=== PATIENT | male | born 1965 | race Caucasian/White ===

== ENCOUNTER 2019-05-20 08:47 | Outpatient (CLI) | payer OTHER, SELFPAY ==
--- NOTE | 2019-05-20 09:00 | IR_ITS ---
WS: [id number] MYELOGRAM CERVICAL SPINE Fluoroscopic guided cervical myelogram CLINICAL INFORMATION: Neck pain COMPARISON: None. TECHNIQUE: The procedure, including risks, benefits, and complications, were discussed with the patie nt who agreed to proceed. A timeout was performed to confirm correct patient, procedure, and site. Using sterile technique, the patient was prepped and draped in the usual sterile fashion. After admin istration of local anesthesia using 1% preservative-free lidocaine and using fluoroscopic guidance, a 22-gauge spinal needle was advanced into the subarachnoid space at the L2-3 level. Subsequently 13 c c of Omnipaque 300 was administered into the thecal sac. The needle was removed and hemostasis was ac hieved. Subsequently the table was tilted down and contrast flowed freely into the cervical spine. Sp ot fluoroscopic images were obtained. FLUOROSCOPIC TIME: 4.6 minutes. Spot fluoroscopic images demonstrate straightening of the normal cervical lordosis. Prior postoperati ve changes anterior cervical fusion C4-C6 with interbody fusion. Hardware appears in good position. D isc space narrowing worse at C3-C4 and C6-7. Anterior hypertrophic changes. No instability on flexio n-extension. Please see CT myelogram report for additional detail. IR/IR myelogram sp cervical [id number] IMPRESSION: 1. Uncomplicated cervical myelogram. 2. Straightening of the normal cervical lordosis. No instability on flexion-ex tension. 3. Prior postoperative changes anterior cervical fusion C4-C6. Hardware appear s in good position. 4. Disc space narrowing worse at C3-C4 and C6-C7.
--- NOTE | 2019-05-20 09:00 | IR_ITS ---
WS: [id number] MYELOGRAM LUMBAR SPINE Fluoroscopic guided lumbar myelogram CLINICAL INFORMATION: Lumbar stenosis COMPARISON: None. TECHNIQUE: The procedure, including risks, benefits, and complications, were discussed with the patie nt who agreed to proceed. A timeout was performed to confirm correct patient, procedure, and site. Using sterile technique, the patient was prepped and draped in the usual sterile fashion. After admin istration of local anesthesia using 1% preservative-free lidocaine and using fluoroscopic guidance, a 22-gauge spinal needle was advanced into the subarachnoid space at the L2-3 level. Subsequently 13 c c of Omnipaque 300 was administered into the thecal sac. The needle was removed and hemostasis was ac hieved. Spot fluoroscopic images were obtained. FLUOROSCOPIC TIME: 4.6 minutes. Spot fluoroscopic images demonstrate 5 nonrib-bearing lumbar vertebral bodies. Hypertrophic changes i n the lower lumbar spine. Right renal calculus measuring 15 mm. Disc space narrowing worse at L3-L4 L 4-L5 and L5-S1. Slight retrolisthesis L3 on L4 and L4 on L5. Moderate facet arthropathy L4-L5 and L5- S1 with bony foraminal narrowing. No significant instability on flexion-extension. Some subdural exte nsion of contrast. Aortic calcification. Please see CT myelogram report for additional detail. IR/IR myelogram sp lumbar [id number] IMPRESSION: 1. Uncomplicated L2-3 lumbar myelogram 2. No instability on flexion-extension. 3. Disc space narrowing worse at L3-L4 and L4-L5 with slight retrolisthesis. 4. Right renal pelvic calculus measuring 15 mm. This can be further evaluated with renal stone protocol CT.
[2019-05-20 09:20] LABS: INR 0.98 (0.8-1.2)
[2019-05-20] MEDS: iohexol 300 mg/mL 50 mL Btl IV (10:44)
--- NOTE | 2019-05-20 11:00 | CT_ITS ---
WS: [id number] CT CERVICAL MYELOGRAM TECHNIQUE: CT of the cervical spine coronal and sagittal reformatted images post intrathecal administ ration of contrast. CLINICAL INFORMATION: Neck pain COMPARISON: MRI February 25, [address] myelogram 015 DLP: 901.[address] scans at [facility] use at least one of these dose optimization techniques: automat ed exposure control; mA and/or kV adjustment per patient size (includes targeted exams where dose is matched to clinical indication); or iterative reconstruction. FINDINGS: Straightening of the normal cervical lordosis. Normal C1-2 articulation. Prior postoperative changes anterior cervical interbody fusion at C4-C6. No evidence of hardware loosening. Disc space narrowing worse at C3-C4 and C6-C7. No high-grade central canal stenosis. C2-C3: No significant disc bulging. Spinal canal and foramen are patent. C3-C4: Mild disc bulging with osteophytic ridging. Mild central canal stenosis. Moderate left and mil d right bony foraminal narrowing. Mild facet arthropathy. Mild central canal stenosis. C4-C5: Prior postoperative changes anterior interbody cervical fusion. Moderate left and mild right b noemy foraminal narrowing. Spinal canal is patent. C5-C6: Postoperative changes anterior interbody cervical fusion. Severe right and moderate left bony foraminal narrowing. Spinal canal is patent. C6-C7: Postoperative changes anterior cervical fusion. Severe right greater than left bony foraminal narrowing. Mild central canal stenosis. C7-T1: Mild left and no significant right foraminal narrowing. Spinal canal is patent. Mastoid air ce lls are well aerated. Disc space narrowing at C6-C7 has progressed since the prior MRI . Otherwise no significant interval changes. CT/CT cervical spine w con [id number] IMPRESSION: 1. Straightening of the normal cervical lordosis. 2. Anterior cervical fusion C4-C6 with interbody fusion. Hardware appears well seated and unchanged. 3. Mild central canal stenosis C3-C4 and C6-C7 is unchanged. 4. Severe multilevel bony foraminal narrowing worse at right C5-C6 and bilater al C6-7 right greater than left. This is unchanged.
--- NOTE | 2019-05-20 11:30 | CT_ITS ---
WS: [id number] CT LUMBAR SPINE TECHNIQUE: Contrast-enhanced CT of the lumbar spine with coronal and sagittal reformatted images. CLINICAL INFORMATION: Low back pain COMPARISON: MRI 11 18,019 and prior myelogram 10 15,015 DLP: 2412.[address] scans at [facility] use at least one of these dose optimization techniques: automat ed exposure control; mA and/or kV adjustment per patient size (includes targeted exams where dose is matched to clinical indication); or iterative reconstruction. FINDINGS: Mild spondylitic changes lumbar spine with disc osteophyte complexes worse at L3-L4 and L4-L5 with hy pertrophic changes. Endplate degenerative changes at these levels. Disc bulging is similar to the sandro or MRI. L1-L2: Mild annular bulging with narrowing of the left subarticular recess. Mild facet arthropathy. F oramen are patent. L2-L3: Mild disc bulging with narrowing of the left subarticular recess. Mild central canal stenosis. Mild facet arthropathy. Foramen are patent. L3-L4: Central disc osteophyte complex with moderate central canal stenosis appears unchanged from th e prior examination. Moderate left and mild right foraminal narrowing. Mild facet arthropathy. L4-L5: Disc osteophyte complex with endplate ridging. Moderate facet arthropathy. Moderate central ca nal stenosis. Narrowing of the left greater than right subarticular recess. Moderate bilateral forami nal narrowing is unchanged. L5-S1: Mild disc bulging with endplate ridging. Moderate right greater than left facet arthropathy. S emerson canal and foramen are patent. Aortic calcification. Visualized pelvic bony structures: Normal. Paravertebral soft tissues: Normal. CT/CT lumbar spine w con [id number] IMPRESSION: 1. Moderate central canal stenosis L3-L4 and L4-L5 due to disc osteophyte comp lexes appears unchanged since the prior MRI. 2. Moderate bilateral L4-5 foraminal narrowing due to osteophytic ridging left greater than right is unchanged. Narrowing of the left L4-5 subarticular reces s. 3. Moderate left L3-4 foraminal narrowing. 4. Small left pericentral protrusion L2-3 with a left subarticular recess. 5. Moderate facet arthropathy worse L4-L5 and right L5-S1.
== END 2019-05-20 08:48 | disposition home or self-care (01) ==
LOC: RAD 08:51
PROVIDERS: Family Provider Family Medicine; PCP Family Medicine; Visit Provider Licensed Practical Nurse
DX: M48.061 Spinal stenosis, lumbar region without neurogenic claudication (principal); M47.817 Spondylosis without myelopathy or radiculopathy, lumbosacral region
CPT/HCPCS: 62302; 62304; 72040; 72120; 72126; 72132; 85610; J2001

== ENCOUNTER → 2019-05-28 07:41 | Outpatient (BNVA) | payer OTHER, SELFPAY | PROVIDERS: Family Provider Family Medicine; PCP Family Medicine; Referring Provider Licensed Practical Nurse; Visit Provider Psychiatry & Neurology Neurology | DX: M51.17 Intervertebral disc disorders with radiculopathy, lumbosacral region (principal); M54.5 Low back pain; M79.605 Pain in left leg; M79.604 Pain in right leg; F17.210 Nicotine dependence, cigarettes, uncomplicated | CPT/HCPCS: 95886; 95909 ==

== ENCOUNTER 2020-03-03 09:47 | Outpatient (CLI) | payer OTHER, SELFPAY ==
--- NOTE | 2020-03-03 09:45 | XRR_ITS ---
PROCEDURE INFORMATION: Exam: XR Abdomen, 1 View Exam date and time: 03/03/2020 10:10 AM Age: 54 years old Clinical indication: Condition or disease; Kidney or ureter condition; Calculus (stone) in kidney; Prior surgery; Surgery type: Hernia; Additional info: Renal stone TECHNIQUE: Imaging protocol: XR of the abdomen. Views: Frontal supine view of the abdomen. 1 View. COMPARISON: UT XR KUB [id number] 11/05/2018 7:20 AM FINDINGS: Gastrointestinal tract: Normal. No bowel dilation. Organs: Calcified caliceal stone in seen in the central collecting system the right kidney 10.6 mm x 18.4 mm. This finding was present on prior examination and appears stable. Bones/joints: Moderate osteoarthritis is seen in the lumbar spine with bone spurs and narrowing of the intervertebral disc space XR/XR KUB [id number] IMPRESSION: 1. Negative for acute GI abnormality. 2. Caliceal stone central collecting system of the right kidney 3. Lumbar spine osteoarthritis
== END 2020-03-03 09:48 | disposition home or self-care (01) ==
LOC: RAD 09:51
PROVIDERS: PCP Family Medicine; Visit Provider Urology
DX: N20.0 Calculus of kidney (principal); M47.816 Spondylosis without myelopathy or radiculopathy, lumbar region
CPT/HCPCS: 74018; 81003

== ENCOUNTER → 2020-10-02 10:22 | Outpatient (BNVA) | payer BC, SELFPAY | PROVIDERS: PCP Family Medicine; Visit Provider Nurse Practitioner Family | DX: R10.11 Right upper quadrant pain (principal); Z68.31 Body mass index [BMI] 31.0-31.9, adult; F17.210 Nicotine dependence, cigarettes, uncomplicated | CPT/HCPCS: 80053; 85025 ==

== ENCOUNTER 2020-12-08 07:21 | Outpatient (CLI) | payer BC, SELFPAY ==
--- NOTE | 2020-12-08 07:28 | NM_ITS ---
WS: [id number] NUCLEAR MEDICINE HIDA SCAN WITH GALLBLADDER EJECTION FRACTION HISTORY: R10.11 - Right upper quadrant pain COMPARISON: None available. TECHNIQUE: The patient was intravenously injected with 4.1 mCi of TC99m Mebrofenin. Immediate imaging over the right upper quadrant was followed by 5 minute image and additional images for a total of 60 minutes. Normal uptake of radiotracer throughout the liver. Activity identified in the gallbladder at 15 minutes and well distended by 60 minutes. Activity in the proximal small bowel was seen by 40 minutes. Good washout of the radiotracer from the liver by 60 minutes. The patient then drank 8 ounces of Ensure Plus. Ejection fraction at 60 minutes was 63%. Normal GB ej ection fraction is 35-75%. Post fatty meal symptoms: None. NM/NM hepatobiliary w phar* [id number] IMPRESSION: 1. Normal HIDA scan. 2. Normal gallbladder ejection fraction.
== END 2020-12-08 07:22 | disposition home or self-care (01) ==
LOC: RAD 07:23
PROVIDERS: PCP Family Medicine; Visit Provider Nurse Practitioner Family
DX: R10.11 Right upper quadrant pain (principal)
CPT/HCPCS: 78227; A9537

== ENCOUNTER 2021-01-14 07:47 | Outpatient (CLI) | payer BC, SELFPAY ==
--- NOTE | 2021-01-14 07:30 | XR_ITS ---
WS: [id number] XR KUB [id number] REASON FOR EXAM: RENAL CALCULUS FINDINGS: 16 x 8 mm calculus overlying the mid lower right kidney. Unchanged compared to 03/03/2020. No additional urinary tract calculi are identified. No other significant abdominal abnormality. XR/XR KUB [id number] IMPRESSION: Stable right renal calculus as above.
== END 2021-01-14 07:48 | disposition home or self-care (01) ==
LOC: RAD 07:50
PROVIDERS: PCP Family Medicine; Visit Provider Urology
DX: N20.0 Calculus of kidney (principal)
CPT/HCPCS: 74018; 81003; 84403

== ENCOUNTER 2021-02-09 05:01 | Emergency (ER) | payer BC, SELFPAY ==
[2021-02-09 05:04] VITALS: BP 156/81; PULSE 66; RESP 20; TEMP 36.6; O2SAT 98; BMI 31.3
--- NOTE | 2021-02-09 05:15 | XRR_ITS ---
PROCEDURE INFORMATION: Exam: XR Abdomen Exam date and time: 02/09/2021 5:15 AM Age: 55 years old Clinical indication: Abdominal pain; Localized; Right; Additional info: L flank pain TECHNIQUE: Imaging protocol: XR of the abdomen. Views: Frontal supine view of the abdomen. 1 View. COMPARISON: CR XR KUB [id number] 01/14/2021 8:03 AM FINDINGS: Gastrointestinal tract: Mild amount of formed stool in the colon. Bones/joints: Unremarkable. XR/XR KUB portable [id number] IMPRESSION: Mild constipation. Radiation Dose CTDIVOL = (mGy): DLP = (mGy-cm)
--- NOTE | 2021-02-09 05:20 | W.ED.ABDPA2 ---
Documented by User: Ray Liazrraga MD 02/09/21 05:23 HPI - Abdominal Pain General: Chief Complaint: Abdominal Pain Stated Complaint: pain in lower back Time Seen by Provider: 02/09/21 05:14 Source: patient Mode of arrival: ambulatory Limitations: no limitations History of Present Illness: HPI narrative: 55-year-old male who has a long history of kidney stones states he was woken up this morning at 2 AM with severe left-sided flank pain. He states that the pain was immediate sharp and rates it a 9 out of 10 with nausea no vomiting. States this feels like his previous kidney stones. Denies any worsening improving factors. Denies any fever or dysuria. Associated Symptoms: Denies chills, diarrhea, fever(s), nausea and vomiting Review of Systems Const: Denies: fever(s), chills, body aches or change in appetite Eyes: Denies: blurry vision or eye discomfort ENMT: Denies: throat pain or dental pain Card: Denies: chest pain Resp: Denies: dyspnea GI: Denies: abdominal pain, nausea, vomiting or diarrhea : Reports: flank pain Musc: Denies: neck pain or back pain Skin/Breast: Denies: rash Neuro: Denies: headache(s) Psych: Denies: depression [place]/Lymph: Denies: easy bruising All/Imm: Denies: urticaria PFSH ED PFSH: Medical History Cervical disc disorder with myelopathy of mid-cervical region Cervical post-laminectomy syndrome Intervertebral disc disorder with radiculopathy of lumbosacral region Lumbar stenosis with neurogenic claudication Other male erectile dysfunction Renal calculus, right Surgical History History of cervical spinal surgery (~2007) Dr. Kasey Quiroz History of hernia surgery Dr. Henry History of knee surgery (Unknown) Dr. Martinez, [place] [facility]. 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[employer] Medical History of recent travel: No Physical Exam Const: COMMON NORMALS: no acute distress, patient oriented x3 and healthy appearing HENMT: COMMON NORMALS: normocephalic and atraumatic HEAD & SCALP: normocephalic and atraumatic Eye: COMMON NORMALS: Equal, round and reactive pupils present and EOMs intact bilaterally PUPIL: Yes Equal, round and reactive pupils present Neck/C-Spine: COMMON NORMALS: full ROM and supple Chest: COMMONS NORMALS: normal inspection of the chest and normal palpation of entire chest wall Resp: COMMON NORMALS: normal respiratory effort, No retractions, No use of accessory muscles and clear to auscultation bilaterally AUSCULTATION: clear to auscultation bilaterally Cardio: COMMON NORMALS: regular rate, regular rhythm and No murmurs present (Cardio) RATE: regular rate RHYTHM: regular rhythm GI: COMMON NORMALS: Normal to inspection, nondistended, normoactive bowel sounds present, Soft to palpation, non-tender and no masses PALPATION: Yes Soft to palpation Extremity: COMMON NORMALS: normal to inspection and full ROM Neuro: COMMON NORMALS: patient oriented x3, moves all extremities and no focal motor deficits Psych: COMMON NORMALS: mental status grossly normal, Normal thought process present and cooperative THOUGHT PROCESS: Normal thought process present Skin: COMMON NORMALS: no rashes or lesions noted and no wounds GENERAL SKIN EXAM: no rashes or lesions noted Course Vital Signs: Vital signs: Vital Signs Temperature 97.9 F 02/09/21 05:04 Pulse Rate 66 02/09/21 05:04 Respiratory Rate 16 02/09/21 05:53 Blood Pressure 156/81 02/09/21 05:04 Pulse Oximetry 96 02/09/21 05:53 MDM - Abdominal Pain Lab Data: Labs: Lab Results 02/09/21 02/09/21 02/09/21 05:20 05:20 05:40 WBC 8.1 10^3/uL 10^3/ uL (4.0-10.0) RBC 4.83 10^6/uL 10^6 /uL (4.1-5.3) Hgb 15.9 g/dL g/dL (11.7-16.6) Hct 48.6 % % (42.0-52.0) MCV 100.6 fl H fl (80-94) MCH 32.9 pg pg (28.0-34.0) MCHC 32.7 g/dL g/dL (30.0-36.0) RDW 12.5 % % (12.1-15.1) Plt Count 178 10^3/cmm 10^3 /cmm (130-400) MPV 9.8 fL fL (7.4-10.4) Neut % (Auto) 67.3 % % Lymph % (Auto) 21.2 % % Coleman % (Auto) 7.0 % % Eos % (Auto) 3.3 % % Baso % (Auto) 0.6 % % Neut # (Auto) 5.46 10^3/uL 10^3 /uL (1.8-7.7) Lymph # (Auto) 1.7 10^3/uL 10^3/ uL (0.8-4.8) Coleman # (Auto) 0.6 10^3/uL 10^3/ uL (0.2-0.9) Eos # (Auto) 0.3 10^3/uL 10^3/ uL (0.0-0.8) Baso # (Auto) 0.1 10^3/uL 10^3/ uL (0.0-0.1) Nucleated RBC % (a uto) 0 % % Nucleated RBCs # 0.0 /100WBC /100W BC Sodium 139 mmol/L mmol/L (136-145) Potassium 4.4 mmol/L mmol/L (3.5-5.1) Chloride 107 mmol/L mmol/L (98-107) Carbon Dioxide 22 mmol/L mmol/L (22-29) Anion Gap 14.4 (5-19) BUN 10 mg/dL mg/dL (6-20) Creatinine 0.8 mg/dL mg/dL (0.7-1.2) GFR Calculation 100.0 mL/min mL/m in (90-130) Glucose 115 mg/dL mg/dL (65-115) Calculated Osmolal ity 288 mOsm/kg mOsm/ kg (285-295) Calcium 8.6 mg/dL mg/dL (8.5-10.5) Total Bilirubin 0.3 mg/dL mg/dL (0.15-1.2) AST 27 U/L U/L (0-40) ALT 18 U/L U/L (0-41) Alkaline Phosphata se 76 IU/L IU/L (40-130) Total Protein 6.2 g/dL L g/dL (6.6-8.7) Albumin 3.9 g/dL g/dL (3.5-5.2) Globulin 2.3 g/dL g/dL (1.3-4.6) Urine Color Yellow (Yellow) Urine Appearance Sl hazy (CLEAR) Urine pH 5 (5-7) Ur Specific Gravit y 1.025 (1.005-1.030) Urine Protein Neg (Negative) Urine Glucose (UA) Norm (Normal) Urine Ketones Negative (Negative) Urine Blood 3+ H (Negative) Urine Nitrate Negative (Negative) Urine Bilirubin Neg (Negative) Urine Urobilinogen Norm mg/dL mg/dL (Negative) Ur Leukocyte Madeline ase Negative (Negative) Urine RBC 15-25 /hpf H /hpf (0-2) Urine WBC 10-15 /hpf H /hpf (0-5) Ur Squamous Epith Cells 0-4 /hpf H /hpf (0-5) Calcium Oxalate Cr ystal 0-4 /hpf H /hpf Amorphous Sediment Not Reportable Urine Bacteria Trace /hpf /hpf (NONE) Hyaline Casts 0-4 /lpf H /lpf Urine Mucus 1+ /hpf /hpf Discharge Plan Discharge Patient Disposition: Home Clinical Impression: Nephrolithiasis, Cystitis Condition: Stable Prescriptions: New hydrocodone-acetaminophen 7.5-325 mg tablet 1 tab PO Q6H PRN (Reason: pain) Qty: 25 RF: 0 Zofran 4 mg tablet 4 mg PO Q6H PRN (Reason: nausea and vomiting) Qty: 20 RF: 0 tamsulosin 0.4 mg capsule 0.4 mg PO Q24H Qty: 20 RF: 0 ciprofloxacin HCl 750 mg tablet 750 mg PO DAILY Qty: 7 RF: 0 No Action pantoprazole [Protonix] 40 mg tablet,delayed release (DR/EC) 40 mg PO BID PRNRF: 0 tadalafil [Cialis] 20 mg tablet 20 mg PO QDAY PRN (Reason: sexual activity) Qty: 20 RF: 12 ondansetron HCl [Zofran] 4 mg tablet 4 mg PO Q6H PRN (Reason: nausea and vomiting) Qty: 20 RF: 0 Discharge Orders: Discharge ED (Routine); Ordered 02/09/21 Ordered By: Ck Nelson Referrals: Earl Mckeon DO [Primary Care Provider] - Discharge Diet: Usual diet Discharge Activity: Resume usual activity Patient Instructions: Opioid Safety Activity Restrictions/Additional Instructions: Case management will make arrangements for a follow-up with Dr. Daniels, and have a x-ray done prior to seeing him.. Prior to seeing Dr. Daniels have a repeat x-ray of your abdomen and remain fasting after midnight on the day that you see him. Sign Out Sign Out Data: Patient Sign Out occurred on 02/09/21 at 05:42. Patient's care was discussed, and care was transferred from to Ck Nelson DO. Coding Level of Care Code ED Top Inventory Control Executive for Chg Fwd Exam Comprehensive Documented by User: Ck Nelson DO 02/09/21 07:49 HPI - Abdominal Pain General: Chief Complaint: Abdominal Pain Stated Complaint: pain in lower back Time Seen by Provider: 02/09/21 05:14 PFSH ED PFSH: Medical History Cervical disc disorder with myelopathy of mid-cervical region Cervical post-laminectomy syndrome Intervertebral disc disorder with radiculopathy of lumbosacral region Lumbar stenosis with neurogenic claudication Other male erectile dysfunction Renal calculus, right Surgical History History of cervical spinal surgery (~2007) Dr. Kasey Quiroz History of hernia surgery Dr. Henry History of knee surgery (Unknown) Dr. [place], [place]. 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 Cannot really definitively see a stone in the lower pelvis. His pain is well controlled at this point. There is fair number of white blood cells although his overall white blood cell count is normal. I am going to cover him with antibiotics pain medications antiemetics tamsulosin 1 strain the urine. We will set him up to see urology he should have a repeat KUB and be fasting when he goes into see urology. Return if pain is not controlled. Lab Data: Labs: Lab Results 02/09/21 02/09/21 02/09/21 05:20 05:20 05:40 WBC 8.1 10^3/uL 10^3/ uL (4.0-10.0) RBC 4.83 10^6/uL 10^6 /uL (4.1-5.3) Hgb 15.9 g/dL g/dL (11.7-16.6) Hct 48.6 % % (42.0-52.0) MCV 100.6 fl H fl (80-94) MCH 32.9 pg pg (28.0-34.0) MCHC 32.7 g/dL g/dL (30.0-36.0) RDW 12.5 % % (12.1-15.1) Plt Count 178 10^3/cmm 10^3 /cmm (130-400) MPV 9.8 fL fL (7.4-10.4) Neut % (Auto) 67.3 % % Lymph % (Auto) 21.2 % % Coleman % (Auto) 7.0 % % Eos % (Auto) 3.3 % % Baso % (Auto) 0.6 % % Neut # (Auto) 5.46 10^3/uL 10^3 /uL (1.8-7.7) Lymph # (Auto) 1.7 10^3/uL 10^3/ uL (0.8-4.8) Coleman # (Auto) 0.6 10^3/uL 10^3/ uL (0.2-0.9) Eos # (Auto) 0.3 10^3/uL 10^3/ uL (0.0-0.8) Baso # (Auto) 0.1 10^3/uL 10^3/ uL (0.0-0.1) Nucleated RBC % (a uto) 0 % % Nucleated RBCs # 0.0 /100WBC /100W BC Sodium 139 mmol/L mmol/L (136-145) Potassium 4.4 mmol/L mmol/L (3.5-5.1) Chloride 107 mmol/L mmol/L (98-107) Carbon Dioxide 22 mmol/L mmol/L (22-29) Anion Gap 14.4 (5-19) BUN 10 mg/dL mg/dL (6-20) Creatinine 0.8 mg/dL mg/dL (0.7-1.2) GFR Calculation 100.0 mL/min mL/m in (90-130) Glucose 115 mg/dL mg/dL (65-115) Calculated Osmolal ity 288 mOsm/kg mOsm/ kg (285-295) Calcium 8.6 mg/dL mg/dL (8.5-10.5) Total Bilirubin 0.3 mg/dL mg/dL (0.15-1.2) AST 27 U/L U/L (0-40) ALT 18 U/L U/L (0-41) Alkaline Phosphata se 76 IU/L IU/L (40-130) Total Protein 6.2 g/dL L g/dL (6.6-8.7) Albumin 3.9 g/dL g/dL (3.5-5.2) Globulin 2.3 g/dL g/dL (1.3-4.6) Urine Color Yellow (Yellow) Urine Appearance Sl hazy (CLEAR) Urine pH 5 (5-7) Ur Specific Gravit y 1.025 (1.005-1.030) Urine Protein Neg (Negative) Urine Glucose (UA) Norm (Normal) Urine Ketones Negative (Negative) Urine Blood 3+ H (Negative) Urine Nitrate Negative (Negative) Urine Bilirubin Neg (Negative) Urine Urobilinogen Norm mg/dL mg/dL (Negative) Ur Leukocyte Madeline ase Negative (Negative) Urine RBC 15-25 /hpf H /hpf (0-2) Urine WBC 10-15 /hpf H /hpf (0-5) Ur Squamous Epith Cells 0-4 /hpf H /hpf (0-5) Calcium Oxalate Cr ystal 0-4 /hpf H /hpf Amorphous Sediment Not Reportable Urine Bacteria Trace /hpf /hpf (NONE) Hyaline Casts 0-4 /lpf H /lpf Urine Mucus 1+ /hpf /hpf Discharge Plan Discharge Patient Disposition: Home Clinical Impression: Nephrolithiasis, Cystitis Condition: Stable Prescriptions: New hydrocodone-acetaminophen 7.5-325 mg tablet 1 tab PO Q6H PRN (Reason: pain) Qty: 25 RF: 0 Zofran 4 mg tablet 4 mg PO Q6H PRN (Reason: nausea and vomiting) Qty: 20 RF: 0 tamsulosin 0.4 mg capsule 0.4 mg PO Q24H Qty: 20 RF: 0 ciprofloxacin HCl 750 mg tablet 750 mg PO DAILY Qty: 7 RF: 0 No Action pantoprazole [Protonix] 40 mg tablet,delayed release (DR/EC) 40 mg PO BID PRNRF: 0 tadalafil [Cialis] 20 mg tablet 20 mg PO QDAY PRN (Reason: sexual activity) Qty: 20 RF: 12 ondansetron HCl [Zofran] 4 mg tablet 4 mg PO Q6H PRN (Reason: nausea and vomiting) Qty: 20 RF: 0 Discharge Orders: Discharge ED (Routine); Ordered 02/09/21 Ordered By: Ck Nelson Referrals: Earl Mckeon DO [Primary Care Provider] - Discharge Diet: Usual diet Discharge Activity: Resume usual activity Patient Instructions: Opioid Safety Activity Restrictions/Additional Instructions: Case management will make arrangements for a follow-up with Dr. Daniels, and have a x-ray done prior to seeing him.. Prior to seeing Dr. Daniels have a repeat x-ray of your abdomen and remain fasting after midnight on the day that you see him. Sign Out Sign Out Data: Patient Sign Out occurred on 02/09/21 at 05:42. Patient's care was discussed, and care was transferred from to Ck Nelson DO. Coding Level of Care Code ED Top Inventory Control Executive for g Fwd Exam Comprehensive
[2021-02-09] MEDS: ondansetron 2 mg/ML SDV 2 mL 4 MG IVP (05:22)
[2021-02-09 05:23] VITALS: RESP 18
[2021-02-09] MEDS: sodium chloride 0.9% 1,000 ML 999 ML IV (05:23)
[2021-02-09] MEDS: HYDROmorphone 1 mg/mL INJ 1 mL IVP ×2 (05:23→05:53)
[2021-02-09 05:32] LABS: Basophils # 0.1 10^3/uL (0.0-0.1); Basophils % 0.6 %; Eosinophils # 0.3 10^3/uL (0.0-0.8); Eosinophils % 3.3 %; Hematocrit 48.6 % (42.0-52.0); Hemoglobin 15.9 g/dL (11.7-16.6); Lymphocytes # 1.7 10^3/uL (0.8-4.8); Lymphocytes % 21.2 %; Mean Corpuscular HGB Conc 32.7 g/dL (30.0-36.0); Mean Corpuscular Hemoglobin 32.9 pg (28.0-34.0); Mean Corpuscular Volume 100.6 fl (80-94); Mean Platelet Volume 9.8 fL (7.4-10.4); Monocytes # 0.6 10^3/uL (0.2-0.9); Neutrophils # 5.46 10^3/uL (1.8-7.7); Neutrophils % 67.3 %; Nucleated Red Blood Cells % 0 %; Platelet Count 178 10^3/cmm (130-400); Red Blood Count 4.83 10^6/uL (4.1-5.3); Red Cell Distribution Width 12.5 % (12.1-15.1); White Blood Count 8.1 10^3/uL (4.0-10.0)
[2021-02-09 05:53] VITALS: RESP 16; O2SAT 96
[2021-02-09 05:58] LABS: Alanine Aminotransferase 18 U/L (0-41); Albumin Level 3.9 g/dL (3.5-5.2); Alkaline Phosphatase 76 IU/L (40-130); Anion Gap 14.4 (5-19); Aspartate Amino Transferase 27 U/L (0-40); Blood Urea Nitrogen 10 mg/dL (6-20); Calcium 8.6 mg/dL (8.5-10.5); Carbon Dioxide 22 mmol/L (22-29); Chloride 107 mmol/L (98-107); Globulin 2.3 g/dL (1.3-4.6); Glucose 115 mg/dL (65-115); Osmolality Calculated 288 mOsm/kg (285-295); Potassium 4.4 mmol/L (3.5-5.1); Sodium 139 mmol/L (136-145); Total Bilirubin 0.3 mg/dL (0.15-1.2); Total Protein 6.2 g/dL (6.6-8.7)
[2021-02-09 07:14] LABS: Add Urine Microscopic? YES; Bilirubin Urine Neg (Negative); Blood Urine 3+ (Negative); Glucose Urine UA Norm (Normal); Ketones Urine Negative (Negative); Leukocyte Esterase Urine Negative (Negative); Nitrate Urine Negative (Negative); Protein Urine Neg (Negative); Specific Gravity, Urine 1.025 (1.005-1.030); Urine Appearance SL Hazy (CLEAR); Urine Color Yellow (Yellow); Urobilinogen Urine Norm (Negative); pH Urine 5 (5-7)
[2021-02-09 07:31] LABS: RBC Urine 15-25 /hpf (0-2)
[2021-02-09 07:32] LABS: Calcium Oxalate Crystals Urine 0-4 /hpf; Hyaline Casts Urine 0-4 /lpf; Mucus Urine 1+ /hpf; Squamous Epithelial Cell Urine 0-4 /hpf (0-5)
[2021-02-09 07:33] LABS: Add Urine Culture? Yes; Bacteria Urine TRACE /hpf
[2021-02-09 07:59] VITALS: BP 100/60; PULSE 67; RESP 18; TEMP 36.7; O2SAT 96
--- NOTE | 2021-02-09 09:40 | DCPLANNER ---
program development manager had message to schedule a follow up appointment for patient with Dr. Daniels. program development manager called the office of Dr. Daniels, spoke with Feng, gave clinic patients information. program development manager was told that patients information would be printed and reviewed. Clinic will call patient with appointment information. Clinic will call patient with appointment information.
--- NOTE | 2021-02-10 11:22 | DCPLANNER ---
Patient had a follow up appointment scheduled for 02.10.[address] Daniels - patient did attend appointment.
== END 2021-02-09 08:01 | disposition home or self-care (01) ==
PROVIDERS: Emergency Medicine; Emergency Provider Family Medicine; PCP Family Medicine
DX: N20.0 Calculus of kidney (principal); N30.90 Cystitis, unspecified without hematuria; Z87.442 Personal history of urinary calculi
CPT/HCPCS: 74018; 80053; 81001; 85025; 87086; 96361; 96374; 96375; 96376; 99284; J1170; J2405; J7030

== ENCOUNTER 2021-02-10 08:11 | Outpatient (CLI) | payer BC, SELFPAY ==
--- NOTE | 2021-02-10 08:14 | XR_ITS ---
WS: [email or web address] KUB, AP view, 02/10/2021 Clinical Data: FLANK PAIN Comparison: KUB, 02/09/2021 Findings: No abnormal intraabdominal masses are seen. There is no dilatated small bowel or evidence of obstruct ion. There is a 1.6 cm calcification overlying the right kidney. There is a large amount of fecal material throughout the colon. XR/XR KUB [id number] Impression: Right renal calculus.
== END 2021-02-10 08:12 | disposition home or self-care (01) ==
LOC: RAD 08:12
PROVIDERS: PCP Family Medicine; Visit Provider Urology
DX: R10.9 Unspecified abdominal pain (principal); N20.0 Calculus of kidney
CPT/HCPCS: 74018; 81003

== ENCOUNTER 2021-02-17 07:04 | Outpatient (CLI) | payer BC, SELFPAY ==
--- NOTE | 2021-02-17 07:00 | XR_ITS ---
WS: [email or web address] KUB, AP view, 02/17/2021 Clinical Data: nephrolithiasis Comparison: KUB, 02/10/2021 Findings: No abnormal intraabdominal masses are seen. There is no dilatated small bowel or evidence of obstruct ion. The right renal 1.6 cm calcification remains same. There is colon gas and fecal material present. XR/XR KUB [id number] Impression: No change in 1.6 cm right renal calculus.
== END 2021-02-17 07:05 | disposition home or self-care (01) ==
LOC: RAD 07:05
PROVIDERS: PCP Family Medicine; Visit Provider Urology
DX: N20.0 Calculus of kidney (principal); Z12.5 Encounter for screening for malignant neoplasm of prostate
CPT/HCPCS: 74018; 81003; G0103

== ENCOUNTER 2021-04-15 13:57 | Outpatient (CLI) | payer BC, SELFPAY ==
--- NOTE | 2021-04-15 | XR_ITS ---
WS: [email or web address] PROCEDURE: XR chest 2V* [id number] CLINICAL INFORMATION: CONTINUOUS TOBACCO USE COMPARISON: December 20, 2015 FINDINGS: Heart: Normal cardiac silhouette. Lungs: Lungs are clear. No consolidation or pleural fluid. No acute pulmonary infiltrates. Bones: Normal visualized bony structures. XR/XR chest 2V* [id number] IMPRESSION: No acute chest findings
== END 2021-04-15 13:58 | disposition home or self-care (01) ==
PROVIDERS: PCP Family Medicine; Visit Provider Clinical Nurse Specialist Adult Health
DX: F17.200 Nicotine dependence, unspecified, uncomplicated (principal)
CPT/HCPCS: 71046

== ENCOUNTER 2021-04-22 12:15 | Outpatient (CLI) | payer BC, SELFPAY ==
--- NOTE | 2021-04-22 12:00 | CT_ITS ---
WS: [email or web address] CT ABDOMEN AND PELVIS NONCONTRAST HISTORY: RENAL CALCULUS AND LEFT FLANK PAIN TECHNIQUE: Imaging performed through the abdomen and pelvis. Coronal and sagittal reformats are submi tted. All CT scans at [facility] use at least one of these dose optimization techniques: auto mated exposure control; mA and/or kV adjustment per patient size (includes targeted exams where dose is matched to clinical indication); or iterative reconstruction. DLP: 1409.05 mGy.cm COMPARISON: 02/05/2017 and KUB 02/17/2021 Lower thorax: Lung bases are clear. Visualized heart is normal. No hiatal hernia. Liver: Liver is mildly enlarged extending over length of 18.6 cm. No mass or bile duct dilatation ryan ntified on this unenhanced study. Gallbladder: Normal gallbladder. Pancreas: Normal size and attenuation. Normal pancreatic duct. No pancreatitis or mass. Spleen: Normal. Adrenal glands: Normal. No mass. Right kidney: RIGHT kidney is normal size. There are numerous nonobstructing calcifications in the co rtex. The largest calcification measures 14 x 12 mm in the mid kidney. There are additional smaller c alcifications. No hydronephrosis. The RIGHT ureter is normal caliber. Left kidney: Numerous calcifications present which are nonobstructing in the LEFT kidney. Largest deedee cification with a maximum diameter of 6 mm. There is a large cortical cyst measuring 7.1 x 7[address] is centered in the mid to lower kidney. There is mass effect extending into the renal pelvis due t o the large size of the cyst. Aorta: Moderate calcification. No aneurysm. No free fluid, intraperitoneal air or significant lymphadenopathy. GI tract: The appendix is ectatic but similar to prior studies. There is air within the appendix with no inflammation. Numerous diverticula throughout the colon. No acute diverticulitis. No obstruction. Abdominal wall: Negative. No hernia. Pelvis: Normal. Osseous structures: Moderate spondylitic changes in the mid to lower lumbar spine. No fractures. Comp onent of central and foraminal stenosis most significant at L4-[address] due to osteophy[address] disease. CT/CT kidney stone [id number] IMPRESSION: 1. Nonobstructing RIGHT renal calcifications. The largest calcification measur es 14 x 12 mm. No hydronephrosis. 2. Multiple nonobstructing calcifications in the LEFT kidney with a large veronica l cyst. The cyst does encroach into the renal pelvis. No hydronephrosis. 3. No ascites. 4. Mild hepatomegaly.
== END 2021-04-22 12:16 | disposition home or self-care (01) ==
PROVIDERS: PCP Family Medicine; Visit Provider Urology
DX: N20.0 Calculus of kidney (principal); R16.0 Hepatomegaly, not elsewhere classified
CPT/HCPCS: 74176; 81003

== ENCOUNTER 2021-05-12 12:22 | Outpatient (CLI) | payer BC, SELFPAY ==
--- NOTE | 2021-05-12 12:37 | CT_ITS ---
WS: [email or web address] LDCT LUNG CANCER SCREENING HISTORY: NICOTINE DEPENDENCE, CIGARETTES/HX OF TOBACCO USE TECHNIQUE: Axial imaging performed from the apices to 1 cm below the costophrenic angles. Coronal and sagittal reformats are submitted with axial MIP series. All CT scans at [facility] use at least one of these dose optimization techniques: automated exposure control; mA and/or kV adjustment per patient size (includes targeted exams where dose is matched to clinical indication); or iterativ e reconstruction. DLP: 80.39 mGy.cm DIvol: Mean CTDIvol: 1.60 (mGy) COMPARISON: None available. Diagnostic quality: Satisfactory Lung Nodules: No pulmonary nodule, mass or endobronchial lesion. Subsegmental linear areas of atelect asis at the lung bases and lingula. Lungs: Mild pulmonary hyperinflation. Heart: Negative. Other findings: None. CT/CT lung screening [id number] IMPRESSION: LUNG-RADS: 1-Negative FOLLOW UP: 12 Month: Continue annual screening with LDCT OTHER FINDINGS (S MODIFIER): None.
== END 2021-05-12 12:23 | disposition home or self-care (01) ==
LOC: RAD 12:29
PROVIDERS: PCP Family Medicine; Visit Provider Clinical Nurse Specialist Adult Health
DX: Z12.2 Encounter for screening for malignant neoplasm of respiratory organs (principal); F17.210 Nicotine dependence, cigarettes, uncomplicated
CPT/HCPCS: 71271

== ENCOUNTER 2021-08-26 08:02 | Outpatient (CLI) | payer BC, SELFPAY ==
--- NOTE | 2021-08-26 08:20 | XR_ITS ---
WS: [email or web address] KUB, AP view, 08/26/2021 Clinical Data: STONES Comparison: KUB, 02/17/2021. Findings: No abnormal intraabdominal masses are seen. There is no dilatated small bowel or evidence of obstruct ion. The 1.6 cm calcification overlying the right kidney is seen. There is a calcification between the lef t 11th and 12th ribs which could be on the left renal cortical surface. There is fecal material in th e ascending and transverse colons. Osteoarthritis of the lumbar vertebral bodies is noted. XR/XR KUB [id number] Impression: No change in 1.6 cm right renal calculus.
== END 2021-08-26 08:03 | disposition home or self-care (01) ==
PROVIDERS: PCP Family Medicine; Visit Provider Urology
DX: N20.0 Calculus of kidney (principal)
CPT/HCPCS: 74018; 81003; 87086

== ENCOUNTER → 2021-12-10 09:34 | Outpatient (BNVA) | payer BC, SELFPAY | PROVIDERS: PCP Family Medicine; Visit Provider Nurse Practitioner Family | DX: F17.200 Nicotine dependence, unspecified, uncomplicated (principal); J40 Bronchitis, not specified as acute or chronic; R05.9 Cough, unspecified | CPT/HCPCS: 71046; 80053 ==

== ENCOUNTER → 2022-03-30 10:13 | Outpatient (BNVA) | payer BC, SELFPAY | PROVIDERS: PCP Family Medicine; Visit Provider Clinical Nurse Specialist Adult Health | DX: R05.9 Cough, unspecified (principal); J40 Bronchitis, not specified as acute or chronic; J10.1 Influenza due to other identified influenza virus with other respiratory manifestations; R05.1 Acute cough | CPT/HCPCS: 87400; 87426 ==

== ENCOUNTER 2022-06-22 15:25 | Outpatient (CLI) | payer BC, SELFPAY ==
--- NOTE | 2022-06-22 15:49 | XR_ITS ---
WS: [email or web address] XR KUB [id number] REASON FOR EXAM: STONES FINDINGS: 8 mm calculus overlying the left which appears displaced laterally by large left renal mass. Previous CT scan has demonstrated large left renal cyst. 18 x 9 mm calculus overlying the right kidney possibly with additional smaller ill-defined calculi lo cated more superiorly not noted on the previous abdomen exam. No other urinary tract calculi. No othe r significant abnormality of the abdomen. XR/XR KUB [id number] IMPRESSION: Left renal calculus and mass unchanged compared to 08/26/2021. Large right renal calculus possibly with interval development of smaller calcul i.
== END 2022-06-22 15:26 | disposition home or self-care (01) ==
PROVIDERS: PCP Family Medicine; Visit Provider Urology
DX: N20.0 Calculus of kidney (principal)
CPT/HCPCS: 74018; 81003; 87086

== ENCOUNTER → 2022-10-20 12:46 | Outpatient (BNVA) | payer BC, SELFPAY | PROVIDERS: PCP Family Medicine; Visit Provider Clinical Nurse Specialist Adult Health | DX: M79.674 Pain in right toe(s) (principal) | CPT/HCPCS: 84550 ==

== ENCOUNTER → 2023-02-19 10:19 | Outpatient (BNVA) | payer BC, SELFPAY | PROVIDERS: PCP Family Medicine; Visit Provider Nurse Practitioner | DX: R05.9 Cough, unspecified (principal); J22 Unspecified acute lower respiratory infection; J40 Bronchitis, not specified as acute or chronic | CPT/HCPCS: 87400 ==

== ENCOUNTER → 2023-03-08 13:39 | Outpatient (BNVA) | payer BC, SELFPAY | PROVIDERS: PCP Family Medicine; Visit Provider Clinical Nurse Specialist Adult Health | DX: J02.9 Acute pharyngitis, unspecified (principal); J06.9 Acute upper respiratory infection, unspecified | CPT/HCPCS: 87071; 87880 ==

== ENCOUNTER → 2023-04-20 12:32 | Outpatient (BNVA) | payer BC, SELFPAY | PROVIDERS: PCP Family Medicine; Visit Provider Clinical Nurse Specialist Adult Health | DX: R25.1 Tremor, unspecified (principal); R11.0 Nausea | CPT/HCPCS: 80053; 82306; 83036; 85025 ==

== ENCOUNTER → 2023-06-01 07:55 | Outpatient (BNVA) | payer BC, SELFPAY | PROVIDERS: PCP Family Medicine; Visit Provider Clinical Nurse Specialist Adult Health | DX: R73.01 Impaired fasting glucose | CPT/HCPCS: 80053; 83036 ==

== ENCOUNTER → 2023-06-08 07:26 | Outpatient (BNVA) | payer BC, SELFPAY | PROVIDERS: PCP Family Medicine; Visit Provider Clinical Nurse Specialist Adult Health | DX: R10.11 Right upper quadrant pain (principal); R73.01 Impaired fasting glucose; F17.200 Nicotine dependence, unspecified, uncomplicated | CPT/HCPCS: 80053; 85025 ==

== ENCOUNTER → 2023-06-14 09:13 | Outpatient (BNVA) | payer BC, SELFPAY | PROVIDERS: PCP Family Medicine; Visit Provider Family Medicine | DX: R10.11 Right upper quadrant pain (principal); R73.01 Impaired fasting glucose | CPT/HCPCS: 83036; 85025 ==

== ENCOUNTER 2023-06-15 06:43 | Outpatient (CLI) | payer BC, SELFPAY ==
--- NOTE | 2023-06-15 06:45 | US_ITS ---
WS: [email or web address] RIGHT UPPER QUADRANT ULTRASOUND HISTORY: right upper quadrant pain COMPARISON: 10/23/2020 Liver: 16.3 cm in length. Mild heterogeneity throughout the liver. Surface of the liver is very sligh tly nodular. No bile duct dilatation or mass. Portal Vein: Normal hepatopetal flow with monophasic waveform. Gallbladder: Normally distended gallbladder. There is a small hyperplastic polyp measuring 4 x 5 x 3 mm. CBD: 0.3 cm Pancreas: Body and tail are obscured. Right kidney: 11.9 cm in length. Normal size kidney. No hydronephrosis. Nonobstructing calcification central kidney measures 1.6 x 1.3 x 0.8 cm. Cortical cyst at the upper pole 1.7 x 1.7 x 1.6 cm. Aorta and IVC: Unremarkable abdominal aorta and IVC. No ascites. IMPRESSION: 1. Mild hepatic steatosis, suspect early changes of cirrhosis. Surface of the liver is nodular. No m ass. 2. Hyperplastic gallbladder polyp. 3. Nonobstructing RIGHT central renal calcification and upper pole benign cortical cyst.
== END 2023-06-15 06:44 | disposition home or self-care (01) ==
LOC: RAD 06:44
PROVIDERS: PCP Family Medicine; Visit Provider Clinical Nurse Specialist Adult Health
DX: R10.11 Right upper quadrant pain (principal); K76.0 Fatty (change of) liver, not elsewhere classified; K82.4 Cholesterolosis of gallbladder; N28.89 Other specified disorders of kidney and ureter; N28.1 Cyst of kidney, acquired
CPT/HCPCS: 76705; 80053; 83036; 85025

== ENCOUNTER 2023-06-28 10:25 | Outpatient (CLI) | payer BC, SELFPAY ==
--- NOTE | 2023-06-28 10:15 | CT_ITS ---
WS: [email or web address] LDCT LUNG CANCER SCREENING TECHNIQUE: Noncontrast CT of the chest with coronal and sagittal reformatted images. CLINICAL INFORMATION: lung cancer COMPARISON: CT 05/12/2021 DLP: 75.40 mGy.cm DIvol: Mean CTDIvol: 1.60 (mGy) All CT scans at [facility] use at least one of these dose optimization techniques: automat ed exposure control; mA and/or kV adjustment per patient size (includes targeted exams where dose is matched to clinical indication); or iterative reconstruction. FINDINGS: Mild chronic emphysematous changes. No suspicious pulmonary parenchymal opacities. Aortic calcification. Coronary calcification. No mediastinal or hilar lymphadenopathy. No axillary ly mphadenopathy. Normal GE junction. Adrenal glands are normal. Mild thoracic curve. Hypertrophic changes thoracic spi ne. IMPRESSION: CT/CT lung screening [id number] LUNG-RADS: 1-Negative FOLLOW UP: 12 Month: Continue annual screening with LDCT
== END 2023-06-28 10:26 | disposition home or self-care (01) ==
LOC: RAD 10:26
PROVIDERS: PCP Family Medicine; Visit Provider Clinical Nurse Specialist Adult Health
DX: Z12.2 Encounter for screening for malignant neoplasm of respiratory organs (principal); F17.200 Nicotine dependence, unspecified, uncomplicated; J43.9 Emphysema, unspecified
CPT/HCPCS: 71271

== ENCOUNTER 2023-07-06 15:40 | Outpatient (CLI) | payer BC, SELFPAY ==
[2023-07-06] MEDS: iohexol 350 mg/mL 500 mL Btl (per mL) PO (15:56)
--- NOTE | 2023-07-06 16:30 | CT_ITS ---
WS: [email or web address] CT ABDOMEN AND PELVIS WITH CONTRAST HISTORY: recurrent abdominal pain with gas pains TECHNIQUE: Imaging performed of the abdomen and pelvis with IV contrast. Single phase imaging of the abdomen. Coronal and sagittal reformats are submitted. All CT scans at [facility] use at [address] one of these dose optimization techniques: automated exposure control; mA and/or kV adjustment per patient size (includes targeted exams where dose is matched to clinical indication); or iterative re construction. IV CONTRAST: Omnipaque 350; 100 mL IV. Oral contrast: Yes. DLP: 682.67 mGy.cm COMPARISON: 04/22/2021 Lower thorax: Lung bases are clear. Heart is normal size. No hiatal hernia. Liver/biliary system: Normal size with no intrahepatic dilatation. Gallbladder: Normal. No gallstones or wall thickening. No pericholecystic fluid. Pancreas: Normal size pancreas and pancreatic duct. No adjacent inflammation. Spleen: Normal size spleen. No mass or infarct. Adrenal glands: Normal. Right kidney: Numerous calcifications are nonobstructing. Simple cyst upper pole 1.7 x 1.7 cm. No ure teral obstruction. No solid mass. Left kidney: Very large LEFT renal cyst is reidentified measuring 10.0 x 9.8 cm. There are additional nonobstructing calcifications. No hydronephrosis. No solid mass. Aorta: Mild atherosclerosis with no aneurysm. Lymphadenopathy: None. Free fluid: None. GI tract: Well distended stomach. No small bowel obstruction. Moderate constipation. Normal appendix. A few scattered diverticula without acute diverticulitis. Abdominal wall: Unremarkable abdominal wall. No hernia. Pelvis: No free fluid or adenopathy within the pelvis. Urinary bladder is only minimally distended. T here is diffuse bladder wall thickening without a focal mass. Prostate gland is mildly enlarged and h eterogeneous. Bones: Straightening of the normal lumbar lordosis. Component of central and foraminal stenosis throu ghout the lumbar spine. IMPRESSION: 1. No acute abdominal or pelvic abnormalities. 2. Bilateral renal cysts and calcifications which are nonobstructing. 3. Negative gallbladder. 4. Diffuse moderate constipation. 5. Mild distal colon diverticular disease without acute diverticulitis. 6. Minimally distended urinary bladder. Diffuse bladder wall thickening is probably due to under dis tention or bladder outlet obstruction.
[2023-07-06] MEDS: iohexol 350 mg/mL 500 mL Btl (per mL) IV (16:43)
== END 2023-07-06 15:41 | disposition home or self-care (01) ==
LOC: RAD 15:40
PROVIDERS: PCP Family Medicine; Visit Provider Clinical Nurse Specialist Adult Health
DX: N28.1 Cyst of kidney, acquired (principal); K59.00 Constipation, unspecified; K57.30 Diverticulosis of large intestine without perforation or abscess without bleeding; N32.89 Other specified disorders of bladder; R10.9 Unspecified abdominal pain
CPT/HCPCS: 74177; Q9967

== ENCOUNTER 2023-10-23 09:58 | Outpatient (CLI) | payer BC, SELFPAY ==
--- NOTE | 2023-10-23 10:02 | XRR_ITS ---
PROCEDURE INFORMATION: Exam: XR Right Shoulder Exam date and time: 10/23/2023 10:09 AM Age: 58 years old Clinical indication: Right; Prior surgery; Surgery date: 6+ months; Surgery type: Rotator cuff repair 20 + years ago; Patient HX: Injured shoulder pushing truck 2 months ago pain since; Additional info: Right shoulder pain and decreased abduction TECHNIQUE: Imaging protocol: Radiologic exam of the right shoulder. Views: 2 or more views. COMPARISON: CT lung screening [id number] 06/28/2023 10:44 AM FINDINGS: Bones/joints: No fracture or dislocation is appreciated. There are degenerative changes involving the AC joint. There are subchondral cystic change involving the lateral humeral head. This can be seen with impingement. Recommend clinical correlation. Bony mineralization is otherwise normal. Soft tissues: Normal. XR/XR shoulder RT min 2V* [id number] IMPRESSION: 1. Osteoarthritis involving the AC joint. 2. Subchondral cyst formation involving the lateral humeral head.
== END 2023-10-23 09:59 | disposition home or self-care (01) ==
LOC: RAD 10:00
PROVIDERS: PCP Family Medicine; Visit Provider Clinical Nurse Specialist Adult Health
DX: M25.811 Other specified joint disorders, right shoulder (principal); M19.011 Primary osteoarthritis, right shoulder; M85.611 Other cyst of bone, right shoulder
CPT/HCPCS: 73030

== ENCOUNTER 2023-11-29 11:30 | Outpatient (CLI) | payer BC, SELFPAY ==
--- NOTE | 2023-11-29 12:15 | MR_ITS ---
WS: [email or web address] MRI RIGHT SHOULDER NONCONTRAST TECHNIQUE: Sagittal T2, coronal T1, T2 and proton density imaging. Axial gradient PDE imaging. CLINICAL INFORMATION: right shoulder pain COMPARISON: None. FINDINGS: Advanced degenerative arthritis AC joint. Fluid and edema at the AC joint. Small amount of subacromia l subdeltoid fluid. Subacromial spurring. Impingement distal supraspinatus. Tendinopathy distal supra spinatus. Tiny intrasubstance tear in the distal supraspinatus. Normal infraspinatus. Normal teres mi nor. Subscapularis tendon appears intact. Intra-articular biceps tendon appears intact. Biceps tendon intact within the bicipital groove. Moder ate degenerative narrowing at the glenohumeral articulation. Normal bone marrow signal in the glenoid . Normal biceps labral anchor. MR/MR shoulder RT wo con* [id number] IMPRESSION: 1. Moderate degenerative arthritis at the AC joint with fluid and edema. Subac romial subdeltoid fluid. 2. Subacromial spurring impinges the distal supraspinatus with tendinopathy an d small intrasubstance tear distally. 3. Rotator cuff is otherwise intact. 4. Biceps tendon appears intact within the bicipital groove. 5. Intra-articular biceps tendon appears intact. 6. Moderate degenerative narrowing of the glenohumeral articulation. 7. No other acute findings.
== END 2023-11-29 11:31 | disposition home or self-care (01) ==
PROVIDERS: PCP Family Medicine; Visit Provider Clinical Nurse Specialist Adult Health
DX: M25.811 Other specified joint disorders, right shoulder (principal); M19.011 Primary osteoarthritis, right shoulder
CPT/HCPCS: 73221

== ENCOUNTER → 2024-02-19 08:17 | Outpatient (BNVA) | payer BC, SELFPAY | PROVIDERS: PCP Family Medicine; Visit Provider Family Medicine | DX: E88.819 Insulin resistance, unspecified (principal); K76.0 Fatty (change of) liver, not elsewhere classified | CPT/HCPCS: 80053; 80061; 83036 ==

== ENCOUNTER → 2025-01-20 11:17 | Outpatient (BNVA) | payer BC, SELFPAY | PROVIDERS: PCP Family Medicine; Visit Provider Nurse Practitioner Family | DX: M79.89 Other specified soft tissue disorders (principal); L53.9 Erythematous condition, unspecified; M20.5X1 Other deformities of toe(s) (acquired), right foot; M77.8 Other enthesopathies, not elsewhere classified; M85.671 Other cyst of bone, right ankle and foot; S93.331A Other subluxation of right foot, initial encounter; X58.XXXA Exposure to other specified factors, initial encounter; M12.871 Other specific arthropathies, not elsewhere classified, right ankle and foot | CPT/HCPCS: 73630 ==

== ENCOUNTER → 2025-02-03 09:00 | Outpatient (BNVA) | payer BC, SELFPAY | PROVIDERS: PCP Family Medicine; Visit Provider Family Medicine | DX: R73.01 Impaired fasting glucose (principal); K76.0 Fatty (change of) liver, not elsewhere classified; M25.59 Pain in other specified joint; M19.09 Primary osteoarthritis, other specified site | CPT/HCPCS: 80053; 80061; 84550 ==